=== PATIENT | female | born 1945 | race Native Hawaiian/Other Pacific Islander ===

== ENCOUNTER 2018-12-09 08:14 | Outpatient (CLI) | payer BC, OTHER ==
[~2018-12-09] VITALS: Ht 154.9 cm; Wt 99.8 kg
== END 2018-12-09 19:29 | disposition home or self-care (01) ==
LOC: NM 08:14
DX: Z01.810 Encounter for preprocedural cardiovascular examination (principal)
CPT/HCPCS: A9500; J2785

== ENCOUNTER 2019-03-13 09:11 | Outpatient (CLI) | payer BC, OTHER | END 2019-03-13 23:42 | disposition home or self-care (01) | LOC: RAD 09:11 | DX: Z13.820 Encounter for screening for osteoporosis (principal); N95.8 Other specified menopausal and perimenopausal disorders; M19.90 Unspecified osteoarthritis, unspecified site ==